=== PATIENT | female | born 1985 | race Caucasian/White ===

== ENCOUNTER 2018-02-16 04:32 | Inpatient (IN) | payer BC, OTHER ==
[~2018-02-16] VITALS: Ht 154.9 cm; Wt 61.0 kg
[~2018-02-16 04:32] MED LIST: MOTR200T PO; PROB1TAB PO
[2018-02-16] MEDS: LACTATED RINGER'S 1000 ML IV SCH ×2 (04:41→05:43)
[2018-02-16 04:58] LABS: AUTOMATED NEUTROPHIL # 5.6 TH/MM3 (1.8-7.7); BASOPHIL % 0.2 % (0.0-2.0); EOSINOPHIL # 0.1 TH/MM3 (0-0.4); EOSINOPHIL % 0.7 % (0.0-4.0); HEMATOCRIT 36.9 % (35.0-46.0); HEMOGLOBIN 13.1 GM/DL (11.6-15.3); LYMPH % 23.2 % (9.0-44.0); MEAN CELL VOLUME 89.6 FL (80.0-100.0); MEAN CORPUSCULAR HEMOGLOBIN 31.8 PG (27.0-34.0); MEAN CORPUSCULAR HGB CONC 35.5 % (32.0-36.0); MEAN PLATELET VOLUME 8.4 FL (7.0-11.0); MONO % 10.9 % (0.0-8.0); MONOCYTE # 0.9 TH/MM3 (0-0.9); PLATELET COUNT 198 TH/MM3 (150-450); RED BLOOD COUNT 4.12 MIL/MM3 (4.00-5.30); RED CELL DISTRIBUTION WIDTH 12.7 % (11.6-17.2); WHITE BLOOD COUNT 8.6 TH/MM3 (4.0-11.0)
[2018-02-16] MEDS ORDERED: MINERAL OIL 10 ML VIAL TOPICAL PRN (05:00)
[2018-02-16] MEDS ORDERED: ONDANSETRON HCL 4 MG/2 ML VIAL IV PUSH PRN (05:00)
[2018-02-16] MEDS ORDERED: NS 500 ML BOLUS IV PRN (05:00)
[2018-02-16] MEDS ORDERED: OXYTOCIN 30 UNITS 500ML PREMIX IV ONE (05:00)
[2018-02-16] MEDS ORDERED: NS 1000 ML IV PRN (05:00)
[2018-02-16] MEDS ORDERED: LIDOCAINE HCL 1% 50 ML VIAL I-DERMAL PRN (05:00)
[2018-02-16] MEDS ORDERED: LACTATED RINGER'S 1000 ML BOLUS IV PRN (05:00)
[2018-02-16] MEDS ORDERED: LIDOCAINE HCL 1% 50 ML VIAL INFIL PRN (05:00)
[2018-02-16] MEDS ORDERED: CITRIC ACID-SODIUM CITRATE LIQ 30 ML UDC PO SCH (05:00)
[2018-02-16] MEDS ORDERED: ePHEDrine/NS 25 MG/5 ML SYRINGE ONE (05:03)
[2018-02-16] MEDS ORDERED: fentaNYL 2MCG-BUPIV 0.125% INJ 150 ML EPIDURAL ONE (05:03)
[2018-02-16 05:18] LABS: BILIRUBIN, URINE NEG (NEG); BLOOD, URINE SMALL (NEG); GLUCOSE,URINE NEG (NEG); KETONE, URINE NEG (NEG); MUCUS URINE FEW /lpf (OCC); NITRITE,URINE NEG (NEG); PH, URINE 6.5 (5.0-8.5); RENAL EPITHELIAL CELLS <1 /hpf; SQUAMOUS EPITHELIAL CELL URINE <1 /hpf (0-5); URINE COLOR LIGHT-YELLOW (YELLW/STRAW); URINE LEUKOCYTE ESTERASE NEG (NEG)
[2018-02-16] MEDS ORDERED: LIDOCAINE 1.5%/EPINEPHrine 1:200,000 PF 5 ML AMP ONE (05:24)
[2018-02-16] MEDS ORDERED: NO SYSTEM NARCOTICS PRN (06:00)
[2018-02-16] MEDS ORDERED: ePHEDrine/NS 25 MG/5 ML SYRINGE IV PUSH PRN (06:00)
[2018-02-16] MEDS ORDERED: DO NOT ADMINISTER ANTICOAGULANTS PRN (06:00)
[2018-02-16] MEDS ORDERED: fentaNYL 2MCG-BUPIV 0.125% 150 ML EPIDURAL PRN (06:00)
--- NOTE | 2018-02-16 06:35 | HHI.DCPOC ---
Discharge Care Plan Diagnosis: (1) 40 weeks gestation of Report Symptoms to Your Doctor -Temperature above 100.5 degrees -Redness, of incision or excessive or foul smelling drainage -Unusual pain or calf pain -Increased vaginal bleeding -Painful or difficulty urinating -Feelings of extreme sadness or anxiety after 2 weeks Goals to Promote Your Health * To prevent worsening of your condition and complications * To maintain your health at the optimal level Directions to Meet Your Goals Take your medications as prescribed Follow your dietary instruction Follow activity as directed Ensure plenty of rest for recovery Drink fluids for hydration Keep your appointments as scheduled Take your immunizations and boosters as scheduled If your symptoms worsen call your PCP, if no PCP go to Urgent Care Center or Emergency Room Smoking is Dangerous to Your Health. Avoid second hand smoke Call the 24-hour crisis hotline for domestic abuse at Chuck Og MD February 16, 2018 06:35
--- NOTE | 2018-02-16 06:46 | HHI.HP ---
HPI Date Seen: February 16, 2018 Time Seen: 06:30 Travel History International Travel<30 Days: No Contact w/Intl Traveler<30Days: No Known Affected Area: No History of Present Illness HPI 32 yo came tonight with SROM at 0300. 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 Home Meds Reported Medications Ibuprofen Micronized (Advil) 200 Mg Tab, 400 MG PO DAILY Y for PAIN, TAB 06/25/15 Probiotic Product (Probiotic) 1 Tab Tab, 1 TAB PO DAILY 06/25/15 Review of Systems Except as stated in HPI: all other systems reviewed are Neg Physical Exam Narrative GENERAL: Well-nourished, well-developed patient. SKIN: Warm and dry. HEAD: Normocephalic and atraumatic. EYES: No scleral icterus. No injection or drainage. ENT: No nasal drainage noted. Mucous membranes pink. Airway patent. NECK: Supple, trachea midline. No JVD. CARDIOVASCULAR: Regular rate and rhythm without murmurs, gallops, or rubs. RESPIRATORY: Breath sounds equal bilaterally. No accessory muscle use. BREASTS: Bilateral exam showed no masses , no retractions, no nipple discharge. ABDOMEN/GI: Abdomen soft, non-tender, bowel sounds present, no rebound, no guarding Gravid to [-] weeks size Fundal Height: [-] GENITOURINARY: External Genitalia: intact and normal in appearance BUS glands: [-] Cervix: [-] Dilatation: 1 Effacement: 90 Station: vtx Presentation: vtx Membranes: SROM Uterine Contractions: q2 FHT's: Category: 1 Baseline: [-] Reactive: [-] Variability: [-] Decels: [-] EXTREMITIES: No cyanosis or edema. BACK: Nontender without obvious deformity. No CVA tenderness. NEUROLOGICAL: Awake and alert. Motor and sensory grossly within normal limits. Five out of 5 muscle strength in all muscle groups. Normal speech. Caprini VTE Risk Assessment Caprini VTE Risk Assessment: No/Low Risk (score <= 1) Caprini Risk Assessment Model Point Value = 1 Point Value = 2 Point Value = 3 Point Value = 5 Age 41-60 Minor surgery BMI > 25 kg/m2 Swollen legs Varicose veins or History of unexplained or recurrent spontaneous Oral contraceptives or hormone replacement Sepsis (< 1 month) Serious lung disease, including pneumonia (< 1 month) Abnormal pulmonary function Acute myocardial infarction Congestive heart failure (< 1 month) History of inflammatory bowel disease Medical patient at bed rest Age 61-74 Arthroscopic surgery Major open surgery (> 45 min) Laparoscopic surgery (> 45 min) Malignancy Confined to bed (> 72 hours) Immobilizing plaster cast Central venous access Age >= 75 History of VTE Family history of VTE Factor V Leiden Prothrombin [id number] Lupus anticoagulant Anticardiolipin antibodies Elevated serum homocysteine Heparin-induced thrombocytopenia Other congenital or acquired thrombophilia Stroke (< 1 month) Elective arthroplasty Hip, pelvis, or leg fracture Acute spinal cord injury (< 1 month) Prophylaxis Regimen Total Risk Factor Score Risk Level Prophylaxis Regimen 0-1 Low Early ambulation 2 Moderate Order ONE of the following: *Sequential Compression Device (SCD) *Heparin 5000 units SQ BID 3-4 Higher Order ONE of the following medications: *Heparin 5000 units SQ TID *Enoxaparin/Lovenox 40 mg SQ daily (WT < 150 kg, CrCl > 30 mL/min) *Enoxaparin/Lovenox 30 mg SQ daily (WT < 150 kg, CrCl > 10-29 mL/min) *Enoxaparin/Lovenox 30 mg SQ BID (WT < 150 kg, CrCl > 30 mL/min) AND/OR *Sequential Compression Device (SCD) 5 or more Highest Order ONE of the following medications: *Heparin 5000 units SQ TID (Preferred with Epidurals) *Enoxaparin/Lovenox 40 mg SQ daily (WT < 150 kg, CrCl > 30 mL/min) *Enoxaparin/Lovenox 30 mg SQ daily (WT < 150 kg, CrCl > 10-29 mL/min) *Enoxaparin/Lovenox 30 mg SQ BID (WT < 150 kg, CrCl > 30 mL/min) AND *Sequential Compression Device (SCD) Data Data Vital Signs Reviewed: Yes Orders Orders Admit To Inpatient (02/16/18 ) Code Status (02/16/18 04:47) Vital Signs (Adult) .Per protocol (02/16/18 04:47) Activity Oob Ad Anum (02/16/18 04:47) Heart (02/16/18 04:47) Amnioinfusion (02/16/18 04:47) Urinary Catheter Management .ONCE (02/16/18 04:47) Diet Npo (02/16/18 Breakfast) Complete Blood Count With Diff (02/16/18 04:47) Hold Clot (02/16/18 04:47) Abo/Rh Blood Type (02/16/18 04:47) Urinalysis - C+S If Indicated (02/16/18 04:47) Ob/Psych Drug Screen, Urine (02/16/18 04:47) Resp Oxygen Non Rebreathe Mask (02/16/18 ) ^ Epidural / Intrathecal Infus (02/16/18 04:47) Specimen To Be Collected PRN (02/16/18 04:47) Specimen To Be Collected PRN (02/16/18 04:47) Lactated Ringer's 1000 Ml Inj (Lr 1000 M (02/16/18 05:00) Lactated Ringer's 1000 Ml Inj (Lr 1000 M (02/16/18 05:00) Sodium Chlorid 0.9% 500 Ml Inj (Ns 500 M (02/16/18 05:00) Sodium Chlor 0.9% 1000 Ml Inj (Ns 1000 M (02/16/18 05:00) Lidocaine 1% Inj (50 Ml) (Xylocaine 1% I (02/16/18 05:00) Citric Acid-Sodium Citrate Liq (Bicitra (02/16/18 05:00) Ondansetron Inj (Zofran Inj) (02/16/18 05:00) Fentanyl Inj (Fentanyl Inj) (02/16/18 05:00) Fentanyl Inj (Fentanyl Inj) (02/16/18 05:00) Oxytocin 30 Units-500ml Premix (Pitocin (02/16/18 05:00) Lidocaine 1% Inj (50 Ml) (Xylocaine 1% I (02/16/18 05:00) Light Mineral Oil (Muri-Lube Oil) (02/16/18 05:00) Fentanyl 2mcg-Bupiv 0.125% Inj (Fentanyl (02/16/18 05:03) Ephedrine/Ns 25 Mg/5 Ml Syr (Ephedrine/N (02/16/18 05:03) Lido-Epi Pf 1.5%-1:200,000 Inj (Xylocain (02/16/18 05:24) Mrsa Pcr Surveillance (02/16/18 05:30) Nursing Information ([facility] Nursing Inform (02/16/18 06:00) Nursing Information ([facility] Nursing Inform (02/16/18 06:00) Fentanyl Inj (Fentanyl Inj) (02/16/18 06:00) Fentanyl 2mcg-Bupiv 0.125% Inj (Fentanyl (02/16/18 06:00) Ephedrine/Ns 25 Mg/5 Ml Syr (Ephedrine/N (02/16/18 06:00) ^ Place On Chart (02/16/18 ) ^ Medication Indications (02/16/18 ) Consent (02/16/18 ) ^ No Systemic Narcotics (02/16/18 ) ^ Call Anesthesiologist (02/16/18 ) ^ Discontinue Epidural Cathete (02/16/18 ) Anticoagulant Alert (02/16/18 ) ^ Epidural Alert (02/16/18 ) Group B Strep: Negative Labs Laboratory Tests Test 02/16/18 04:44 02/16/18 05:08 White Blood Count 8.6 Red Blood Count 4.12 Hemoglobin 13.1 Hematocrit 36.9 Mean Corpuscular Volume 89.6 Mean Corpuscular Hemoglobin 31.8 Mean Corpuscular Hemoglobin Concent 35.5 Red Cell Distribution Width 12.7 Platelet Count 198 Mean Platelet Volume 8.4 Neutrophils (%) (Auto) 65.0 Lymphocytes (%) (Auto) 23.2 Monocytes (%) (Auto) 10.9 Eosinophils (%) (Auto) 0.7 Basophils (%) (Auto) 0.2 Neutrophils # (Auto) 5.6 Lymphocytes # (Auto) 2.0 Monocytes # (Auto) 0.9 Eosinophils # (Auto) 0.1 Basophils # (Auto) 0.0 CBC Comment DIFF FINAL Differential Comment Urine Color LIGHT-YELLOW Urine Turbidity CLEAR Urine pH 6.5 Urine Specific [place] 1.009 Urine Protein NEG Urine Glucose (UA) NEG Urine Ketones NEG Urine Occult Blood SMALL Urine Nitrite NEG Urine Bilirubin NEG Urine Urobilinogen LESS THAN 2.0 Urine Leukocyte Esterase NEG Urine RBC 5 Urine WBC 1 Urine Squamous Epithelial Cells <1 Urine Renal Epithelial Cells <1 Urine Mucus FEW Microscopic Urinalysis Comment CULT NOT INDICATED Urine Opiates Screen NEG Urine Barbiturates Screen NEG Urine Amphetamines Screen NEG Urine Benzodiazepines Screen NEG Urine Cocaine Screen NEG Urine Cannabinoids Screen NEG Assessment/Plan Problem List: (1) 40 weeks gestation of ICD Codes: Z3A.40 - 40 weeks gestation of Assessment and Plan expectant management Chuck Og MD February 16, 2018 06:46
[2018-02-16] MEDS ORDERED: ALUMINUM/MAGNESIUM/SIMETH 30 ML CUP PO PRN (07:15)
[2018-02-16] MEDS ORDERED: BENZOCAINE 20% TOPICAL SPRAY 60 ML CAN TOPICAL PRN (07:15)
[2018-02-16] MEDS ORDERED: IBUPROFEN 800 MG TAB PO PRN (07:15)
[2018-02-16] MEDS ORDERED: OXYTOCIN 30 UNITS-500ML PREMIX 500 ML IV SCH (07:15)
[2018-02-16] MEDS ORDERED: ACETAMINOPHEN 325 MG TAB PO PRN (07:15)
[2018-02-16] MEDS ORDERED: DOCUSATE SODIUM 50 MG/SENNA 8.6 MG TAB PO PRN (07:15)
[2018-02-16] MEDS ORDERED: SODIUM CHLORIDE 0.9% FLUSH 10 ML FLUSH IV FLUSH PRN (07:15)
[2018-02-16] MEDS ORDERED: ONDANSETRON ODT 4 MG TAB PO PRN (07:15)
[2018-02-16] MEDS ORDERED: WITCH HAZEL 50%/GLYCERIN 12.5% 40 PAD JAR TOPICAL PRN (07:15)
[2018-02-16] MEDS ORDERED: ZOLPIDEM TARTRATE 5 MG TAB PO PRN (07:15)
--- NOTE | 2018-02-16 07:18 | PD.OB.DELI ---
Weeks gestation: 40 Active labor start date: February 16, 2018 Active labor start time: 03:30 Medical induction of labor?: No Artificial rupture of membrane: No Anesthesia: Epidural Episiotomy: None Vaginal Delivery: Normal, Spontaneous Presentation: Occiput anterior Nuchal Cord: None Delayed cord clamping (45 sec): Yes Delivery date: February 16, 2018 Delivery time: 07:02 One Minute : 9 Five Minute : 9 Placenta: Spontaneous delivery, Intact, 3 vessel cord Laceration: No lacerations Estimated blood loss: 150 Chuck Og MD February 16, 2018 07:18
[2018-02-16] MEDS ORDERED: SODIUM CHLORIDE 0.9% FLUSH 10 ML FLUSH IV FLUSH SCH (09:00)
[2018-02-16] MEDS ORDERED: MEASLES, MUMPS, RUBELLA VACCINE 0.5 ML VIAL SQ ONE (16:00)
[2018-02-16] MEDS ORDERED: DIPHTH/TETANUS/ACEL PERTUSSIS (BOOSTER) 0.5 ML VIAL/PFS IM ONE (16:00)
--- NOTE | 2018-02-17 07:36 | HHI.OB ---
Subjective Post Day: 1 Remarks doing well Objective Objective Remarks GENERAL: Well-nourished, well-developed patient. . ABDOMEN/GI: Abdomen soft, non-tender. Fundus: Firm, non-tender at umbilicus. GENITOURINARY: Light to moderate bleeding. EXTREMITIES: No cyanosis or edema, non-tender, without signs of DVT. Medications and IVs Current Medications Medications (Trade) Dose Ordered Sig/Irvin Route Start Time Stop Time Status Last Admin (NS Flush) 2 ml BID IV FLUSH 02/16/18 09:00 (NS Flush) 2 ml UNSCH PRN IV FLUSH 02/16/18 07:15 (Tylenol) 650 mg Q4H PRN PO 02/16/18 07:15 (Motrin) 800 mg Q8H PRN PO 02/16/18 07:15 (Americaine 20% Top Spr) 1 spray Q4H PRN TOPICAL 02/16/18 07:15 (Tucks Pads) 1 applic QID PRN TOPICAL 02/16/18 07:15 (Colette-Colace) 2 tab Q12H PRN PO 02/16/18 07:15 (Ambien) 5 mg HS PRN PO 02/16/18 07:15 (Mag-Al Plus Susp Liq) 15 ml Q8H PRN PO 02/16/18 07:15 (Zofran Odt) 4 mg Q6H PRN PO 02/16/18 07:15 Assessment/Plan Problem List: (1) 40 weeks gestation of ICD Codes: Z3A.40 - 40 weeks gestation of (2) Spontaneous vaginal delivery ICD Codes: O80 - Encounter for full-term uncomplicated delivery Assessment and Plan and DC ppd #1 Chuck Og MD February 17, 2018 07:36
--- NOTE | 2018-02-17 07:38 | HHI.DS ---
Admission Date February 16, 2018 at 04:32 Discharge Date: February 17, 2018 Admitting Diagnosis Diagnosis: (1) 40 weeks gestation of Diagnosis: Principal ICD Codes: Z3A.40 - 40 weeks gestation of (2) Spontaneous vaginal delivery Diagnosis: Principal ICD Codes: O80 - Encounter for full-term uncomplicated delivery Delivery Date: February 16, 2018 Vaginal Delivery: Normal, Spontaneous Infant: Male Brief History 32 yo came tonight with SROM at 0300. She is 40 3/7 weeks and scheduled for induction this AM Hospital Course doing well Pt Condition on Discharge: Good Discharge Disposition: Discharge Home Discharge Instructions Diet Instructions: As Tolerated, No Restrictions Activities You Can Perform: Regular-No Restrictions, Pelvic Rest Activities to Avoid: Driving for 24 hrs Follow up Referrals: [facility] - 2 Weeks @ [facility] with Chuck Og MD Discontinued Medications: Ibuprofen Micronized (Advil) 200 Mg Tab 400 MG PO DAILY PRN for PAIN, TAB Probiotic Product (Probiotic) 1 Tab Tab 1 TAB PO DAILY Chuck Og MD February 17, 2018 07:38
== END 2018-02-17 13:40 | disposition home or self-care (01) | DRG 775 ==
LOC: H2EB 04:32 → H1EA 09:14
PROVIDERS: ADMIT Obstetrics & Gynecology; ATTEND Obstetrics & Gynecology
PROC: 10E0XZZ Delivery of Products of Conception, External Approach (ICD-10-PCS; principal; 2018-02-16)
PROC: 00HU33Z Insertion of Infusion Device into Spinal Canal, Percutaneous Approach (ICD-10-PCS; 2018-02-16)
PROC: 3E0R3BZ Introduction of Anesthetic Agent into Spinal Canal, Percutaneous Approach (ICD-10-PCS; 2018-02-16)
DX: O80 Encounter for full-term uncomplicated delivery (principal); Z3A.40 40 weeks gestation of pregnancy; Z37.0 Single live birth
CPT/HCPCS: 80307; 81001; 85025; 86900; 86901; 87641; G0481; J2590; J7120